=== PATIENT | female | born 1960 ===

== ENCOUNTER → 2018-07-15 | Day surgery (SDC) | payer SELFPAY ==
[~2018-07-15] MED LIST: Lactated Ringer's 500 ML IV ONE; Midazolam 2 MG/2 ML VIAL ONE; Propofol 10 mg/ml Inj (20 ML) ONE; ePHEDrine 50 mg/ml Inj ONE
[2018-07-15 11:28] VITALS: TEMP 97.5
[2018-07-15 11:48] VITALS: BP 102/47; PULSE 67; RESP 12; O2SAT 100
== END | disposition home or self-care (01) ==
LOC: H.ENDO 09:23
PROVIDERS: ATTEND Internal Medicine Gastroenterology
DX: Z86.010 Personal history of colon polyps (principal); K64.8 Other hemorrhoids; D12.2 Benign neoplasm of ascending colon
CPT/HCPCS: 45380; 88305; J2001; J2250; J2704; J7120